=== PATIENT | female | born 1990 | race Caucasian/White ===

== ENCOUNTER 2023-04-22 02:53 | Emergency (ER) | payer SELFPAY ==
[2023-04-22] MEDS ORDERED: Ketorolac Tromethamine 30 MG/ML VIAL ONE (03:30)
[2023-04-22] MEDS ORDERED: Boostrix 0.5 ML (Tdap) VIAL (>/=7 yrs of age) ONE (03:31)
== END 2023-04-22 04:07 | disposition home or self-care (01) ==
LOC: ERS 02:53
DX: S91.115A Laceration without foreign body of left lesser toe(s) without damage to nail, initial encounter (principal); W26.8XXA Contact with other sharp object(s), not elsewhere classified, initial encounter
CPT/HCPCS: 90471; 90715; 96372; J1885